=== PATIENT | male | born 1960 | race Caucasian/White ===

== ENCOUNTER → 2024-08-25 18:07 | Outpatient (REF) | payer BC, SELFPAY | LOC: MRI 3T 18:07 | PROVIDERS: ATTENDING PHYSICIAN Nurse Practitioner | DX: K83.01 Primary sclerosing cholangitis (principal) | CPT/HCPCS: 74183; A9575 ==

== ENCOUNTER 2025-02-24 06:28 | Day surgery (SDC) | payer BC, SELFPAY | END 2025-02-24 11:26 | disposition home or self-care (01) | LOC: GI 06:28 | PROVIDERS: ATTENDING PHYSICIAN Internal Medicine Gastroenterology | DX: Z12.11 Encounter for screening for malignant neoplasm of colon (principal); K64.0 First degree hemorrhoids; K51.50 Left sided colitis without complications; K63.5 Polyp of colon; K62.1 Rectal polyp | CPT/HCPCS: 45385; 45380; 88305 ==

== ENCOUNTER → 2025-09-04 14:41 | Outpatient (REF) | payer BC, SELFPAY | LOC: MRI 3T 14:41 | PROVIDERS: ATTENDING PHYSICIAN Internal Medicine Gastroenterology; FAMILY PHYSICIAN Physician Assistant Medical | DX: K83.01 Primary sclerosing cholangitis (principal) | CPT/HCPCS: 74183; A9575 ==